=== PATIENT | male | born 1980 | race Caucasian/White ===

== ENCOUNTER 2019-01-10 20:21 | Observation (INO) ==
[2019-01-10 21:05] LABS: Basophils % 0.4 % (0.1-2.0); Eosinophils # 0.1 K/mm3 (0.0-0.4); Eosinophils % 1.2 % (0.1-12.0); Hematocrit 45.7 % (42.0-52.0); Hemoglobin 15.8 g/dL (14.1-18.0); Lymphocytes # 2.2 K/mm3 (0.7-4.5); Lymphocytes % 24.7 % (10-50); Mean Corpuscular HGB Conc 34.5 g/dL (31.8-35.4); Mean Corpuscular Hemoglobin 31.6 pg (27.0-31.2); Mean Corpuscular Volume 91.5 fl (80-94); Mean Platelet Volume 6.7 fl (7.4-10.4); Monocytes # 0.7 K/mm3 (0.1-1.0); Monocytes % 8.1 % (1.7-9.3); Neutrophils # 5.8 K/mm3 (1.8-7.8); Neutrophils % 65.6 % (37.0-80.0); Platelet Count 301 K/mm3 (142-424); Red Blood Count 4.99 M/mm3 (4.60-6.20); Red Cell Distribution Width 13.7 % (11.5-17.5); White Blood Count 8.8 K/mm3 (4.8-10.8)
[2019-01-10 21:18] LABS: Albumin Level 3.9 gm/dL (3.4-5.0); Anion Gap 15.4 mEq/L (5-15); Bilirubin,Total 0.3 mg/dL (0.2-1.0); C-Reactive Protein 1.7 mg/L (0.0-0.9); Calcium 8.6 mg/dL (8.5-10.1); Globulin 4.1 gm/dl (1.3-3.2); Potassium 3.4 mmoL/L (3.5-5.1)
[2019-01-10 21:54] LABS: Erythrocyte Sedimentation Rate 17 mm/hr (0-15)
--- NOTE | 2019-01-10 22:00 | Emergency Department Note ---
ED Disposition Clinical Impression: Abscess Disposition: Admitted as Observation Condition on Discharge: Good Referrals: Provider,Referral, [Primary Care Provider] - - Critical Care Critical Care Time: No Attestation: On 01/10/19, the high probability of a clinically significant, sudden or life threatening deterioration of the following system(s) required my full and direct attention, intervention and personal management. The time I documented below is in addition to time spent performing reported procedures but includes the following listed in this critical care notation. Medical Decision Making - Medical Records Medical records reviewed: Yes: I reviewed the patient's medical records. - Gurinder Inquiry Pt receiving controlled substance: No Vital Signs: 01/10/19 20:34 Temperature 98.6 F Temperature Source Oral Pulse Rate [Right] 120 H Respiratory Rate 18 Blood Pressure [Right Arm] 139/88 Blood Pressure Mean [Right Arm] 105 Blood Pressure Source [Right Arm] Automatic Cuff Blood Pressure Position [Right Arm] Standing 02 Sat by Pulse Oximetry 97 Oxygen Delivery Method Room Air - Lab Data Lab results reviewed: Yes: I reviewed the patient's lab results. Lab Results 01/10/19 20:51: WBC 8.8, RBC 4.99, Hgb 15.8, Hct 45.7, MCV 91.5, MCH 31.6 H, MCHC 34.5, RDW 13.7, Plt Count 301, MPV 6.7 L, Neut % (Auto) 65.6, Lymph % (Auto) 24.7, [place] % (Auto) 8.1, Eos % (Auto) 1.2, Baso % (Auto) 0.4, Neut # (Auto) 5.8, Lymph # (Auto) 2.2, [place] # (Auto) 0.7, Eos # (Auto) 0.1, Baso # (Auto) 0.0, ESR 17 H 01/10/19 20:51: Sodium 137, Potassium 3.4 L, Chloride 100, Carbon Dioxide 25, Anion Gap 15.4 H, BUN 7, Creatinine 0.92, Estimated Creat Clear 116, Estimated GFR 93, Est GFR ( Amer) 112, Glucose 100, Calcium 8.6, Total Bilirubin 0.3, AST 22, ALT 58, Alkaline Phosphatase 81, C-Reactive Protein 1.7 H, Total Pr otein 8.0, Albumin 3.9, Globulin 4.1 H, Albumin/Globulin Ratio 1.0 L 01/10/19 20:51: Lactate 1.3 Result diagrams: 01/10/19 20:51 01/10/19 20:51 Orders (Tests/Meds): ED MEDICATIONS Generic Name Dose Route Start Last Admin Trade Name Freq PRN Reason Stop Dose Admin Sodium Chloride 1,000 mls @ 999 mls/hr 01/10/19 20:45 01/10/19 20:51 Sod Chlor 0.9% 1000ml Bag IV 01/10/19 21:45 999 mls/hr .[id number] NANCY Administration Discontinued Medications Generic Name Dose Route Start Last Admin Trade Name Freq PRN Reason Stop Dose Admin Ketorolac Tromethamine 30 mg 01/10/19 20:44 01/10/19 20:50 Toradol 30mg/Ml Vial IV 01/10/19 20:45 30 mg ONCE ONE Administration ORDERS Category Date Time Status Urinalysis and Microscopic Stat Lab 01/10/19 20:43 Ordered Blood Culture Stat Micro 01/10/19 20:51 Received - Physician Consults Physician Consulted: marquita Reason -: Admission General Adult HPI - General Chief complaint: PAIN Stated complaint: Knot in the groin area Time Seen by Provider: 01/10/19 20:55 Mode of Arrival: Ambulatory Source of Information: Patient, Medical Record Limitations: No Limitations Description of Symptoms (Recalled from ER Triage Doc. by RN): Pt states he has a raised red area on left groin radiating to left testicle - History of Present Illness HPI narrative: progressive tender swollen area lt groin over the last week - no other c/o - no diabetes Onset (ago): day(s) Location: genitals, left Severity: moderate Associated symptoms: denies other symptoms Treatments prior to arrival: none - Related Data Home Medications Medication Instructions Recorded Confirmed No Known Home Medications 01/10/19 01/10/19 Allergies Allergy/AdvReac Type Severity Reaction Status Date / Time No Known Allergies Allergy Verified 01/10/19 20:42 [facility] History - Hepatitis A Screen Drug use history?: No High risk sexual behaviors?: No History of sexually transmitted infection?: No Currently employed?: No Childcare worker?: No Do you have indoor plumbing?: Yes Do you have electricity?: Yes Attestation statement:: This patient has been screened for Hepatitis A risk factors. I have reviewed the patient's past medical history: Yes Medical History: Denies:: Diabetes Mellitus Type 1, Diabetes Mellitus Type 2, Hypertension - Social History Smoking Status: Current every day smoker Tobacco Type: cigarettes # Packs/Day (cigarettes): 2 Alcohol Intake: never Occupational Status: employed - Psychiatric History Expresses thoughts of harming self/others: None Suicide Plan Description: No Plan ROS Obtained: Yes All systems reviewed & no additional complaints - Constitutional Constitutional: Denies fever(s) - Eyes Eyes: Denies change in vision - ENT Ears, Nose, Mouth, and Throat: Denies sore throat - Cardiovascular Cardiovascular: Denies chest pain - Respiratory Respiratory: No cough - Gastrointestinal Gastrointestingal: Reports: nausea. Denies: abdominal pain - Genitourinary Male Genitourinary: Denies scrotal swelling, Denies testicular mass - Musculoskeletal Musculoskeletal: Denies joint pain - Integumentary/Breasts Skin/Breast: Reports other (lt groin abscess) - Neurologic Neurologic: Denies frequent falls, Denies headache(s), Denies seizure-like activity Physical Exam - General General appearance: alert - Head Head exam: normocephalic - Eye Eye exam: Present: PERRL, EOMI. Absent: scleral icterus - ENT ENT exam: Present: mucous membranes moist - Neck Neck exam: Present: trachea midline - Respiratory Respiratory exam: Absent: respiratory distress - Cardiovascular Cardiovascular exam: Present: regular rate. Absent: systolic murmur - Abdominal Exam Abdominal exam: Present: soft - exam: Absent: testicular tenderness, scrotal swelling - Neurological Exam Neurological exam: Present: alert, oriented X3, CN II-XII intact - Psychiatric Psychiatric exam: Present: normal affect - Skin Skin exam: Present: other (2x3 abscess lt groin )
--- NOTE | 2019-01-11 06:47 | History & Physical Report ---
HPI HPI: This is a 38-year-old gentleman who presented to the emergency department with increasing pain/swelling along the left groin. Evaluation revealed changes consistent with abscess and the surgical service was consulted for admission and further management. Please see forwarded copy of HPI from emergency department evaluation below: General Adult HPI - General Chief complaint: PAIN Stated complaint: Knot in the groin area Time Seen by Provider: 01/10/19 20:55 Mode of Arrival: Ambulatory Source of Information: Patient, Medical Record Limitations: No Limitations Description of Symptoms (Recalled from ER Triage Doc. by RN): Pt states he has a raised red area on left groin radiating to left testicle - History of Present Illness HPI narrative: progressive tender swollen area lt groin over the last week - no other c/o - no diabetes Onset (ago): day(s) Location: genitals, left Severity: moderate Associated symptoms: denies other symptoms Treatments prior to arrival: none [facility] History Medical History: Reports:: Cancer (MOUTH CANCER) Denies:: Diabetes Mellitus Type 1, Diabetes Mellitus Type 2, Hypertension *Have you ever received a pneumonia vaccine?: No *Have you received a flu vaccine this season?: No - *Social History Educational Level: Completed High School Smoking Status: Current every day smoker Tobacco Type: cigarettes, smokeless tobacco # Packs/Day (cigarettes): 1 Alcohol Intake: never *Occupational Status:: employed *Travel in the last 8 weeks: None - Psychiatric History Expresses thoughts of harming self/others: None Suicide Plan Description: No Plan Family Hx:: Asthma, Cancer, Coronary Artery Disease, Heart Attack, Hyperlipidemia, Hypertension Review of Systems - Constitutional Denies anorexia - Eyes Denies change in vision - ENT Denies change in voice - *Cardiovascular Denies chest pain - *Respiratory Denies cough - *Gastrointestinal Denies abdominal pain - *Genitourinary Denies difficulty urinating - *Musculoskeletal Denies joint pain - Integumentary/Breasts Denies bleeding lesions - *Neurologic Denies frequent falls, Denies headache(s), Denies seizure-like activity - Psychiatric Denies anxiety - Endocrine Denies cold intolerance - Hematologic/Lymphatic Denies easy bleeding - Allergic/Immunologic Denies GI upset with certain foods Meds Home Medications Medication Instructions Recorded Confirmed Type No Known Home Medications 01/10/19 01/10/19 History Allergies Allergy/AdvReac Type Severity Reaction Status Date / Time No Known Allergies Allergy Verified 01/10/19 20:42 Exam Vital signs and Labs for Last 24 Hours: Temp Pulse Resp BP Pulse Ox 98.2 F 77 16 113/69 99 01/11/19 04:00 01/11/19 04:00 01/11/19 04:00 01/11/19 04:00 01/11/19 04:00 Laboratory Results - last 24 hr 01/10/19 20:51: WBC 8.8, RBC 4.99, Hgb 15.8, Hct 45.7, MCV 91.5, MCH 31.6 H, MCHC 34.5, RDW 13.7, Plt Count 301, MPV 6.7 L, Neut % (Auto) 65.6, Lymph % (Auto) 24.7, [place] % (Auto) 8.1, Eos % (Auto) 1.2, Baso % (Auto) 0.4, Neut # (Auto) 5.8, Lymph # (Auto) 2.2, [place] # (Auto) 0.7, Eos # (Auto) 0.1, Baso # (Auto) 0.0, ESR 17 H 01/10/19 20:51: Sodium 137, Potassium 3.4 L, Chloride 100, Carbon Dioxide 25, Anion Gap 15.4 H, BUN 7, Creatinine 0.92, Estimated Creat Clear 116, Estimated GFR 93, Est GFR ( Amer) 112, Glucose 100, Calcium 8.6, Total Bilirubin 0.3, AST 22, ALT 58, Alkaline Phosphatase 81, C-Reactive Protein 1.7 H, Total Protein 8.0, Albumin 3.9, Globulin 4.1 H, Albumin/Globulin Ratio 1.0 L 01/10/19 20:51: Lactate 1.3 I & O for Last 24 hours: Intake & Output 01/08/19 01/09/19 01/10/19 01/11/19 11:59 11:59 11:59 11:59 Intake Total 1250 / 1250 Balance 1250 / 1250 Weight 163 lb 9 oz - Constitutional no acute distress - *Routine HEENT Exam Head: Present: normocephalic, atraumatic Eye: Present: EOMI ENT: Present: mucous membranes moist - *Routine Neck Exam Present: full ROM - Routine Chest/Breast/Axilla Exam Chest wall: Absent: tenderness Axillae: Absent: lymphadenopathy - *Routine Respiratory Exam Absent: respiratory distress - *Routine Cardiovascular Exam Present: RRR - *Routine Abdominal Exam Present: soft - *Routine Exam Patient deferred: groin exam (Swelling/tenderness/erythema along left groin (groin/proximal scrotum)) - *Routine Extremities Exam Present: full ROM. Absent: cyanosis, clubbing, edema - Routine Back/Spine/Pelvis Exam Back/Spine: Present: full ROM - *Routine Skin Exam Present: intact - *Routine Neurological Exam Present: alert, oriented X3 - Routine Psychiatric Exam Present: normal affect Results - Results Lab Results Last 24 Hours:: Laboratory Results - last 24 hr 01/10/19 20:51: WBC 8.8, RBC 4.99, Hgb 15.8, Hct 45.7, MCV 91.5, MCH 31.6 H, MCHC 34.5, RDW 13.7, Plt Count 301, MPV 6.7 L, Neut % (Auto) 65.6, Lymph % (Auto) 24.7, [place] % (Auto) 8.1, Eos % (Auto) 1.2, Baso % (Auto) 0.4, Neut # (Aut o) 5.8, Lymph # (Auto) 2.2, [place] # (Auto) 0.7, Eos # (Auto) 0.1, Baso # (Auto) 0.0, ESR 17 H 01/10/19 20:51: Sodium 137, Potassium 3.4 L, Chloride 100, Carbon Dioxide 25, Anion Gap 15.4 H, BUN 7, Creatinine 0.92, Estimated Creat Clear 116, Estimated GFR 93, Est GFR ( Amer) 112, Glucose 100, Calcium 8.6, Total Bilirubin 0.3, AST 22, ALT 58, Alkaline Phosphatase 81, C-Reactive Protein 1.7 H, Total Protein 8.0, Albumin 3.9, Globulin 4.1 H, Albumin/Globulin Ratio 1.0 L 01/10/19 20:51: Lactate 1.3 Assessment and Plan (1) Abscess of groin, left Current visit: Yes Status: Acute Category: Medical Code(s): L02.214 - Cutaneous abscess of groin Continue antibiotics Incision and drainage of left groin abscess later today. I have discussed the risks and benefits including, but not limited to: Bleeding Infection Damage to surrounding tissue Inherent risks of sedation The patient agrees to proceed.
[2019-01-11 07:15] LABS: Basophils % 0.3 % (0.1-2.0); Eosinophils # 0.1 K/mm3 (0.0-0.4); Eosinophils % 1.2 % (0.1-12.0); Hemoglobin 14.5 g/dL (14.1-18.0); Lymphocytes % 22.4 % (10-50); Mean Corpuscular HGB Conc 33.7 g/dL (31.8-35.4); Mean Corpuscular Hemoglobin 31.9 pg (27.0-31.2); Mean Corpuscular Volume 94.4 fl (80-94); Mean Platelet Volume 6.7 fl (7.4-10.4); Monocytes # 0.9 K/mm3 (0.1-1.0); Monocytes % 10.2 % (1.7-9.3); Neutrophils # 5.9 K/mm3 (1.8-7.8); Neutrophils % 65.9 % (37.0-80.0); Platelet Count 268 K/mm3 (142-424); Red Blood Count 4.55 M/mm3 (4.60-6.20); Red Cell Distribution Width 13.7 % (11.5-17.5)
[2019-01-11 07:29] LABS: Calcium 8.5 mg/dL (8.5-10.1)
--- NOTE | 2019-01-11 07:32 | Pharmacy Consult Notes ---
[facility] Pharmacy VTE Monitoring - Patient Demographics Admission date: 01/10/19 Report Date: 01/11/19 Time: 07:31 Allergies/Adverse Reactions: Patient Allergies No Known Allergies Allergy (Verified 01/10/19 20:42) Height: 1.73 m Weight: 74.191 kg Patient Problems: Current Active Problems (Updated 01/11/19 @ 06:48 by Karthikeyan Pruitt MD) Abscess (Acute) Abscess of groin, left (Acute) - VTE Risk Labs: VTE Related Lab Results Hgb 14.5 g/dL (14.1-18.0) 01/11/19 06:21 Hct 43.0 % (42.0-52.0) 01/11/19 06:21 Plt Count 268 K/mm3 (142-424) 01/11/19 06:21 BUN 7 mg/dL (7-18) 01/10/19 20:51 Creatinine 0.92 mg/dL (0.70-1.30) 01/10/19 20:51 Estimated Creat Clear 116 mL/min (50-200) 01/10/19 20:51 Was VTE Risk Assessment Performed: Yes VTE Score: 3 VTE Risk Level: Low Risk Clinical Trial Participant: No - Prophylaxis VTE Prophylaxis Ordered?: Yes Types of VTE Prophylaxis: TEDS Knee High
--- NOTE | 2019-01-11 07:59 | Pharmacy Consult Notes ---
- Pharmacy Consult Date: 01/11/19 Time: 07:58 Referring provider: DR. STANTON Reason for Consult:: VANCOMYCIN DOSING Allergies and ADEs:: Allergies Allergy/AdvReac Type Severity Reaction Status Date / Time No Known Allergies Allergy Verified 01/10/19 20:42 Home Medications:: Home Medications Medication Instructions Recorded Confirmed Type No Known Home Medications 01/10/19 01/10/19 History Height: 1.73 m Weight: 74.191 kg Laboratory Results:: Laboratory Results - last 24 hr 01/10/19 20:51: WBC 8.8, RBC 4.99, Hgb 15.8, Hct 45.7, MCV 91.5, MCH 31.6 H, MCHC 34.5, RDW 13.7, Plt Count 301, MPV 6.7 L, Neut % (Auto) 65.6, Lymph % (Auto) 24.7, [place] % (Auto) 8.1, Eos % (Auto) 1.2, Baso % (Auto) 0.4, Neut # (Auto) 5.8, Lymph # (Auto) 2.2, [place] # (Auto) 0.7, Eos # (Auto) 0.1, Baso # (Auto) 0.0, ESR 17 H 01/10/19 20:51: Sodium 137, Potassium 3.4 L, Chloride 100, Carbon Dioxide 25, Anion Gap 15.4 H, BUN 7, Creatinine 0.92, Estimated Creat Clear 116, Estimated GFR 93, Est GFR ( Amer) 112, Glucose 100, Calcium 8.6, Total Bilirubin 0.3, AST 22, ALT 58, Alkaline Phosphatase 81, C-Reactive Protein 1.7 H, Total Protein 8.0, Albumin 3.9, Globulin 4.1 H, Albumin/Globulin Ratio 1.0 L 01/10/19 20:51: Lactate 1.3 01/11/19 06:21: WBC 9.0, RBC 4.55 L, Hgb 14.5, Hct 43.0, MCV 94.4 H, MCH 31.9 H, MCHC 33.7, RDW 13.7, Plt Count 268, MPV 6.7 L, Neut % (Auto) 65.9, Lymph % (Auto) 22.4, [place] % (Auto) 10.2 H, Eos % (Auto) 1.2, Baso % (Auto) 0.3, Neut # (Auto) 5.9, Lymph # (Auto) 2.0, [place] # (Auto) 0.9, Eos # (Auto) 0.1, Baso # (Auto) 0.0 01/11/19 06:21: Sodium 139, Potassium 4.0, Chloride 105, Carbon Dioxide 26, Anion Gap 12.0, BUN 8, Creatinine 0.95, Estimated Creat Clear 112, Estimated GFR 89, Est GFR ( Amer) 108, Glucose 93, Calcium 8.5 Medical History: Reports:: Cancer (MOUTH CANCER) Denies:: Diabetes Mellitus Type 1, Diabetes Mellitus Type 2, Hypertension Assessment and Plan (1) Abscess of groin, left Current visit: Yes Status: Acute Category: Medical Code(s): L02.214 - Cutaneous abscess of groin - Assessment and plan all Dx Assessment and Plan for all problems:: BASED ON PATIENT FACTORS, RECOMMEND VANCOMYCIN 1500 MG IV ONCE, FOLLOWED BY VANCOMYCIN 1250 MG IV Q12H. PHARMACY WILL FOLLOW DAILY AND ADJUST APPROPRIATE.
--- NOTE | 2019-01-11 12:00 | Progress Note ---
[facility] Anesthesia Checklist - Patient Identification Patient Identification: Arm Band, Verbal (Name & ) - Structural Data Admitted From: Inpatient Planned Operative Procedure/s: Left groin abscess I&D Consent for Planned Operative Procedure(s) Verified: Yes Verified Documents: Surgical Consent, History and Physical - NPO Status Verified Time NPO: 00:00 - Chart Verification Results Verified: CBC, BMP - Additional verifications Anesthesia Reactions: No - Airway Assessment C-Spine Mobility Assessed: Yes TMJ Mobility Assessed: Yes Dentition: Poor Dentition (Chipped) - Neurological Assessment Level of Consciousness: Awake Hx Seizures: No Numbness or tingling in extremities: No - Anesthesia Plan Anesthesia Risk discussed: Yes Anesthesia Plan: Verified ASA Class: II Anesthesia Type: General [facility] History 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) Denies:: Diabetes Mellitus Type 1, Diabetes Mellitus Type 2, Hypertension *Have you ever received a pneumonia vaccine?: No *Have you received a flu vaccine this season?: No Laterality Cases: Right: Total Knee Replacement (arthroscopy), Other Other Surgeries: Yes: Other (jaw) - *Social History Educational Level: Completed High School Smoking Status: Current every day smoker Tobacco Type: cigarettes, smokeless tobacco # Packs/Day (cigarettes): 2 Alcohol Intake: never *Occupational Status:: employed *Travel in the last 8 weeks: None - Psychiatric History Expresses thoughts of harming self/others: None Suicide Plan Description: No Plan Family Hx:: Asthma, Cancer, Coronary Artery Disease, Heart Attack, Hyperlipidemia, Hypertension
--- NOTE | 2019-01-11 12:50 | Operative Note ---
Date of procedure: 01/11/19 Pre-op Diagnosis:: Left groin/scrotal abscess Post-op Diagnosis:: Same Procedure performed:: Incision and drainage of left groin/scrotal abscess Surgeon:: Karthikeyan Pruitt MD ELECTRONIC BENCH TECHNICIAN:: Ulises Hunter Anesthesia: LMA Estimated blood loss (mL): 10 Operative findings:: Pocket of purulent fluid in subcutaneous tissue with some caudal and cephalad extension Operative note:: After informed consent was obtained the patient was taken to the operating room and placed in the supine position. General anesthesia with laryngeal mask airway was achieved. His left groin was prepped and draped in a sterile fashion. An elliptical incision was made overlying the central portion of the abscess cavity. This tissue was excised with electrocautery. Evaluation of the cavity revealed cephalad and caudal extension. No spreading cellulitis noted. Fluid was obtained for Gram stain/culture. The cavity was then evacuated of the remaining purulent fluid and packed with moistened gauze. The gauze was infiltrated with 1% lidocaine and dressings were applied. Condition: stable Disposition: PACU Specimens:: Fluid for Gram stain/culture Complications:: No immediate
--- NOTE | 2019-01-11 12:59 | Progress Note ---
[facility] Anesthesia Record Part II Discharge Time: 13:22 Destination: Medical Surgical Department PACU nurse assessment reviewed?: Yes Patient Condition:: Good Anesthesia Complications:: None Swallowing reflex intact?: Yes Cyanosis?: No
--- NOTE | 2019-01-11 12:59 | Progress Note ---
[facility] Anesthesia Record Part I Intake, IV Amount: 200 Estimated blood loss (mL): 5 Urine output (mL): 0 (NM) Blood Products used (#): none Blood Pressure: 108/60 SaO2: 94 Pulse Rate: 62 Respiratory Rate: 18 Temperature: 98.0 F Patient is:: Drowsy, Oral/Nasal airway, Stable Stable to PACU at:: 12:52
--- NOTE | 2019-01-12 07:00 | Progress Note ---
Subjective Patient reports: no new complaints Exam Vital signs and Labs for Last 24 Hours: Temp Pulse Resp BP Pulse Ox 98.0 F 71 18 132/74 98 01/12/19 03:47 01/12/19 03:47 01/12/19 03:47 01/12/19 03:47 01/12/19 03:47 Laboratory Results - last 24 hr 01/11/19 06:21: WBC 9.0, RBC 4.55 L, Hgb 14.5, Hct 43.0, MCV 94.4 H, MCH 31.9 H, MCHC 33.7, RDW 13.7, Plt Count 268, MPV 6.7 L, Neut % (Auto) 65.9, Lymph % (Auto) 22.4, [place] % (Auto) 10.2 H, Eos % (Auto) 1.2, Baso % (Auto) 0.3, Neut # (Auto) 5.9, Lymph # (Auto) 2.0, [place] # (Auto) 0.9, Eos # (Auto) 0.1, Baso # (Auto) 0.0 01/11/19 06:21: Sodium 139, Potassium 4.0, Chloride 105, Carbon Dioxide 26, Anion Gap 12.0, BUN 8, Creatinine 0.95, Estimated Creat Clear 112, Estimated GFR 89, Est GFR ( Amer) 108, Glucose 93, Calcium 8.5 I & O for Last 24 hours: Intake & Output 01/09/19 01/10/19 01/11/19 01/12/19 11:59 11:59 11:59 11:59 Intake Total 1250 / 1250 1892 / 1892 Output Total 50 / 50 Balance 1250 / 1250 1842 / 1842 Weight 163 lb 9 oz 169 lb 1 oz - Constitutional no acute distress - *Routine Respiratory Exam Absent: respiratory distress - *Routine Cardiovascular Exam Present: RRR - *Routine Abdominal Exam Present: soft - *Routine Skin Exam Comments: dressing intact. no erythema. Progress Note: A&P (1) Abscess of groin, left Status: Acute Assessment and plan: Overall, doing well status post incision and drainage. Current Visit: Yes
--- NOTE | 2019-01-12 07:04 | Discharge Summary ---
General - General Admission date:: 01/10/19 Discharge date: 01/12/19 HPI HPI: This is a 38-year-old gentleman who presented to the emergency department with increasing focal swelling/pain in the left groin/scrotum. He was diagnosed with an abscess in the surgical service was consulted for admission and management. Hospital Course Hospital Course: The patient was placed on vancomycin. He remained afebrile with stable normal vital signs. He underwent incision and drainage of his abscess on January 11, 2019. He convalesced well and on the morning of postoperative day 1 was deemed appropriate for discharge with outpatient dressing changes and ongoing follow- up. Objective Vital signs: Temp Pulse Resp BP Pulse Ox 98.0 F 71 18 132/74 98 01/12/19 03:47 01/12/19 03:47 01/12/19 03:47 01/12/19 03:47 01/12/19 03:47 no acute distress - *Routine HEENT Exam Head: Present: normocephalic, atraumatic - *Routine Neck Exam Present: full ROM - Routine Chest/Breast/Axilla Exam Chest wall: Absent: tenderness - *Routine Respiratory Exam Absent: respiratory distress - *Routine Cardiovascular Exam Present: RRR - *Routine Abdominal Exam Present: soft - *Routine Extremities Exam Present: full ROM. Absent: cyanosis, clubbing, edema - Routine Back/Spine/Pelvis Exam Back/Spine: Present: full ROM - *Routine Skin Exam Comments: Left groin/scrotal wound base and margin are clean - *Routine Neurological Exam Present: alert, oriented X3 - Routine Psychiatric Exam Present: normal affect Results Labs on day of discharge: Labs from last 24 hours 01/11/19 01/11/19 06:21 06:21 WBC 9.0 RBC 4.55 L Hgb 14.5 Hct 43.0 MCV 94.4 H MCH 31.9 H MCHC 33.7 RDW 13.7 Plt Count 268 MPV 6.7 L Neut % (Auto) 65.9 Lymph % (Auto) 22.4 [place] % (Auto) 10.2 H Eos % (Auto) 1.2 Baso % (Auto) 0.3 Neut # (Auto) 5.9 Lymph # (Auto) 2.0 [place] # (Auto) 0.9 Eos # (Auto) 0.1 Baso # (Auto) 0.0 Sodium 139 Potassium 4.0 Chloride 105 Carbon Dioxide 26 Anion Gap 12.0 BUN 8 Creatinine 0.95 Estimated Creat Clear 112 Estimated GFR 89 Est GFR ( Amer) 108 Glucose 93 Calcium 8.5 DS: Diagnosis - Discharge Diagnosis (1) Abscess of groin, left Status: Acute Discharge Plan - Patient Discharge Instructions ACTIVITY: Continue current activity DIET: advance to your usual diet Additional Instructions: Wet-to-dry dressing changes twice daily Patient Instructions: DI for Incision and Drainage of a Skin Abscess, Incision and Drainage of a Skin Abscess, DI for Surgical Site Infection, DI for Skin Abscess - Follow up Plan Follow up with: Karthikeyan Pruitt MD [Staff Physician] - 1 week Disposition: Home, Self-Shelter Medications: Home Medications Medication Instructions Recorded Confirmed Type No Known Home Medications 01/10/19 01/10/19 History Prescriptions/Medication Reconciliation: No Action No Known Home Medications
== END 2019-01-12 11:08 | disposition home or self-care (01) ==
LOC: 2ND 20:21 → ER 20:21 → INTOOBSV 23:25 → OBSVTOIN 23:25 → 2ND 23:28
PROVIDERS: ADMIT Surgery; ATTEND Surgery
DX: L02.214 Cutaneous abscess of groin
CPT/HCPCS: 36415; 80048; 80053; 83605; 85025; 85651; 86140; 87040; 87070; 87075; 87205; 96367; 96374; 96375; 99283; G0378; J2405; J3370

== ENCOUNTER 2020-01-19 15:23 | Emergency (ER) | payer MEDICAID, SELFPAY ==
[2020-01-19 15:24] VITALS: BP 135/70; PULSE 100; RESP 20; TEMP 36.6; O2SAT 98; BMI 24.9
[2020-01-19 15:34] VITALS: BP 138/70; PULSE 110; RESP 18; TEMP 36.7; O2SAT 99; BMI 25.0
--- NOTE | 2020-01-19 15:50 | HMH.EDUTC ---
[facility] [place] Clinical Impression: Fish hook injury of left upper arm Disposition: Home, Self-Care Condition on Discharge: Good Instructions: DI for Puncture Wound, Amoxicillin and Clavulanic Acid Additional Instructions: Keep wound area clean and dry and clean with antibacterial soap and water *Apply Neosporin or Triple antibotic cream to the puncture wounds as directed on package and watch for signs of infection After you remove the fish hook, it is important to monitor the site for infection. Should you have any of the following symptoms, see a medical professional as soon as possible to avoid further infection: Redness around the wound/hook site. Persistent drainage from the wound that is discolored. Fever or nausea. Take medication as prescribed Return if needed Straight to ER if any life threatening symptoms Prescriptions: Amoxicillin/Potassium Clav [Augmentin 875-125 Tablet] 1 tab PO Q12H 7 Days #14 tab Transmission Status: Received by [id number] Referrals: Provider,Referral, MD [Primary Care Provider] - As needed Time of Disposition: 16:02 Medical Decision Making - Gurinder Inquiry Pt receiving controlled substance: No Gurinder was queried for this patient: No Vital Signs: 01/19/20 15:24 01/19/20 15:34 01/19/20 16:05 Temperature 98 F 98.0 F 98.2 F Temperature Source Oral Oral Pulse Rate 98 H Pulse Rate [Radial] 100 H 110 H Respiratory Rate 20 18 20 Blood Pressure 133/87 Blood Pressure [Right Arm] 135/70 138/70 Blood Pressure Mean [Right Arm] 91 92 Blood Pressure Source [Right Arm] Automatic Cuff Blood Pressure Position [Right Arm] Sitting 02 Sat by Pulse Oximetry 98 99 Oxygen Delivery Method Room Air [facility] [place] HPI - General Stated complaint: ao [id number]@1430 FISH HOOK IN L aRM Time Seen by Provider: 01/19/20 15:50 Mode of Arrival: Ambulatory Source of Information: Patient Limitations: No Limitations Description of Symptoms (Recalled from Triage Doc. by RN): caught patient with a fish hook in left ac. - History of Present Illness Provider Complaint: Patient was fishing with his when she went to cast her pole and caught him in the right ac area with fishing lure and jerked and set hook in his arm States that he was unable to get it out so he came in to see if we could get it out of his arm, No active bleeding noted at this time - Related Data Previous Rx's Medication Instructions Recorded Hydrocodone/Acetaminophen [Shelby 1 each PO Q4HP PRN #13 tab 01/12/19 5-325 Tablet] Sulfamethoxazole/Trimethoprim 1 each PO BID #14 tab 01/12/19 [Bactrim DS tablet] Amoxicillin/Potassium Clav 1 tab PO Q12H 7 Days #14 tab 01/19/20 [Augmentin 875-125 Tablet] Allergies Allergy/AdvReac Type Severity Reaction Status Date / Time morphine Allergy Verified 01/19/20 16:03 [facility] History - Hepatitis A Screen Attestation statement:: This patient has been screened for Hepatitis A risk factors. 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) Denies:: Diabetes Mellitus Type 1, Diabetes Mellitus Type 2, Hypertension, Seizures Laterality Cases: Right: Other Other Surgeries: Yes: Other (jaw) - Social History Smoking Status: Current every day smoker Tobacco Type: cigarettes, smokeless tobacco # Packs/Day (cigarettes): 2 Alcohol Intake: never Occupational Status: employed Family Hx:: Asthma, Cancer, Coronary Artery Disease, Heart Attack, Hyperlipidemia, Hypertension ROS Obtained: Yes All systems reviewed & no additional complaints, Yes Systems reviewed as appropriate & no additional complaints Physical Exam - General General appearance: alert, in no apparent distress - Respiratory Respiratory exam: Present: normal lung sounds bilaterally. Absent: respiratory distress - Cardiovascular Cardiovascular exam: Present: regular rate, normal rhythm. Absent: JVD - Abdominal Exam Abdominal exam: Presen
[2020-01-19 16:05] VITALS: BP 133/87; PULSE 98; RESP 20; TEMP 36.8; O2SAT 98
== END 2020-01-19 16:17 | disposition home or self-care (01) ==
PROVIDERS: Emergency Provider Nurse Practitioner
DX: S50.352A Superficial foreign body of left elbow, initial encounter (principal); F17.210 Nicotine dependence, cigarettes, uncomplicated
CPT/HCPCS: 10120; 99202

== ENCOUNTER 2020-05-20 09:19 | Emergency (ER) | payer MEDICAID, SELFPAY ==
[2020-05-20 09:31] VITALS: BP 151/93; PULSE 80; RESP 18; TEMP 36.6; O2SAT 99; BMI 23.6
--- NOTE | 2020-05-20 09:35 | HMH.EDGENADL ---
ED Disposition Clinical Impression: Abdominal pain Qualifiers: Abdominal location: epigastric Qualified Code(s): R10.13 - Epigastric pain Hematemesis Qualifiers: Nausea presence: with nausea Qualified Code(s): K92.0 - Hematemesis Disposition: Home, Self-Care Condition on Discharge: Fair Additional Instructions: Protonix as prescribed. Zofran as needed for nausea. Do not drink alcohol. Follow-up with Dr. Denis, gastroenterology, call for appointment. Additional instructions for ABDOMINAL PAIN: See your physician as soon as possible for further evaluation. Return immediately if worsening abdominal pain, vomiting, shortness of breath, fever, vomiting of blood again, or abdominal distention. Prescriptions: Pantoprazole Sodium [Protonix 40mg tablet] 40 mg PO DAILY #14 tab Transmission Status: [facility] Ondansetron [Zofran 4mg ODT] 4 mg PO TIDP PRN #10 tab.rapdis PRN Reason: Nausea And Vomiting Transmission Status: [facility] Referrals: PCP,No [Primary Care Provider] - Joe Denis MD [Staff Physician] - Forms: Work/School Release - Critical Care Critical Care Time: No Attestation: On 05/20/20, the high probability of a clinically significant, sudden or life threatening deterioration of the following system(s) required my full and direct attention, intervention and personal management. The time I documented below is in addition to time spent performing reported procedures but includes the following listed in this critical care notation. Medical Decision Making - Medical Records Medical records reviewed: Yes: I reviewed the patient's medical records. - Gurinder Inquiry Pt receiving controlled substance: No Vital Signs: 05/20/20 09:31 05/20/20 10:13 05/20/20 12:02 Temperature 97.9 F 97.9 F Temperature Source Oral Oral Pulse Rate 74 Pulse Rate [Left Radial] 80 78 Respiratory Rate 18 18 15 Blood Pressure 130/68 Blood Pressure [Left Arm] 151/93 H 139/68 Blood Pressure Mean [Left Arm] 112 91 Blood Pressure Source [Left Arm] Automatic Cuff Automatic Cuff Blood Pressure Position [Left Arm] Sitting Sitting 02 Sat by Pulse Oximetry 99 100 Oxygen Delivery Method Room Air Room Air Room Air - Lab Data Lab results reviewed: Yes: I reviewed the patient's lab results. Lab Results 05/20/20 09:39: Urine Color Yellow, Urine Appearance Clear, Urine pH 8.5, Ur Specific [place] 1.020, Urine Protein Negative, Urine Glucose (UA) Negative, Urine Ketones Negative, Urine Blood Negative, Urine Nitrate Negative, Urine Bilirubin Negative, Urine Urobilinogen 0.2, Ur Leukocyte Esterase Negative, Urine RBC 3-5, Urine WBC Occasional, Ur Squamous Epith Cells 3-5, Urine Bacteria Trace 05/20/20 09:40: WBC 6.1, RBC 4.65, Hgb 15.4, Hct 44.7, MCV 96.3 H, MCH 33.2 H, MCHC 34.5, RDW 13.6, Plt Count 217, MPV 6.9 L, Neut % (Auto) 72.8, Lymph % (Auto) 17.1, [place] % (Auto) 7.6, Eos % (Auto) 1.8, Baso % (Auto) 0.7, Neut # (Auto) 4.4, Lymph # (Auto) 1.0, [place] # (Auto) 0.5, Eos # (Auto) 0.1, Baso # (Auto) 0.0 05/20/20 09:40: Sodium 138, Potassium 4.1, Chloride 99, Carbon Dioxide 31 H, Anion Gap 12.1, BUN 8 L, Creatinine 0.70, Estimated Creat Clear 141, Estimated GFR 126, Est GFR ( Amer) 152, Glucose 119 H, Calcium 10.0, Total Bilirubin 0.8, AST 204 H, ALT 187 H, Alkaline Phosphatase 79, Total Protein 7.6, Albumin 4.7, Globulin 2.9, Albumin/Globulin Ratio 1.6 05/20/20 09:40: PT 9.8, INR 0.98 05/20/20 09:40: Amylase 56, Lipase 146 Result diagrams: 05/20/20 09:40 05/20/20 09:40 Orders (Tests/Meds): ED MEDICATIONS Discontinued Medications Generic Name Dose Route Start Last Admin Trade Name Freq PRN Reason Stop Dose Admin Ioversol 75 ml 05/20/20 11:00 05/20/20 11:01 Rad-Optiray 350 100ml Vial IV 05/20/20 11:01 75 ml ONCE ONE Administration Protocol Ondansetron HCl 4 mg 05/20/20 09:47 05/20/20 10:04 Zofran 4mg/2ml Vial
[2020-05-20 09:46] LABS: Microscopic, Urine URINE MICROSCOPIC (MICROSCOPIC)
--- NOTE | 2020-05-20 09:46 | CT_ITS ---
PROCEDURE: CT ABDOMEN PELVIS W CON CLINICAL INDICATION: abdo pain, vomiting blood COMPARISON: CT ABDPELW CT ABD PELVIS W/ CONTRAST from 12/06/2014 TECHNIQUE: IV Contrast: 75ML OPTIRAY 350 Oral Contrast None Axial images obtained with sagittal and coronal reformats. All CT scans at the facility use one or more dose reduction, viz: automated exposure control, ma/kV adjustment per patient size (including targeted exams where dose is matched to indication, i.e. head), or iterative reconstruction technique. FINDINGS: LOWER THORAX: There is some nonspecific subtle patchy ground-glass attenuation in the lung bases. ABDOMEN & PELVIS: There is diffuse fatty liver infiltration. The spleen, adrenal glands, pancreas, and kidneys have an unremarkable appearance. There is minimal ectasia of the left ureter however, definite ureteral stone is not identified. Unremarkable appendix. No intestinal obstruction or free air. No pelvic mass or abnormal fluid collection. No acute bony findings. IMPRESSION: 1. There is minimal ectasia of the left ureter without obvious obstructing stone. Recently passed ureteral stone could cause this finding. 2. Fatty liver. 3. Subtle patchy ground-glass density areas in the lung bases nonspecific and could be due to areas of atelectasis or patchy infiltrate Dictated by: Ishan Denise MD 05/20/2020 11:22 Ishan Denise MD in [place] 05/20/2020 11:22
[2020-05-20 09:48] LABS: Appearance,Urine CLEAR (Clear); Blood, Urine Negative (Negative); Color,Urine YELLOW (Yellow); Glucose,Urine (UA) Negative (Negative); Ketones,Urine Negative (Negative); Leukocyte Esterase,Urine Negative (Negative); Nitrate,Urine Negative (Negative); PH,Urine 8.5 (5.0-8.5); Protein,Urine Negative (Negative); Urobilinogen,Urine 0.2 EU/dl (0.2)
[2020-05-20 09:50] LABS: Basophils % 0.7 % (0.1-2.0); Eosinophils # 0.1 K/mm3 (0.0-0.4); Eosinophils % 1.8 % (0.1-12.0); Hematocrit 44.7 % (42.0-52.0); Hemoglobin 15.4 g/dL (14.1-18.0); Lymphocytes % 17.1 % (10-50); Mean Corpuscular HGB Conc 34.5 g/dL (31.8-35.4); Mean Corpuscular Hemoglobin 33.2 pg (27.0-31.2); Mean Corpuscular Volume 96.3 fl (80-94); Mean Platelet Volume 6.9 fl (7.4-10.4); Monocytes # 0.5 K/mm3 (0.1-1.0); Monocytes % 7.6 % (1.7-9.3); Neutrophils # 4.4 K/mm3 (1.8-7.8); Neutrophils % 72.8 % (37.0-80.0); Platelet Count 217 K/mm3 (142-424); Red Blood Count 4.65 M/mm3 (4.60-6.20); Red Cell Distribution Width 13.6 % (11.5-17.5); White Blood Count 6.1 K/mm3 (4.8-10.8)
[2020-05-20 09:54] LABS: Chloride 99 mmol/L (98-107); Potassium 4.1 mmoL/L (3.5-5.1); Sodium 138 mmol/L (136-145)
[2020-05-20 09:56] LABS: Blood Urea Nitrogen 8 mg/dl (9-20); Creatinine Clearance Estimated 141 mL/min (50-200); Estimated Glomerular Filt Rate 126 ml/min (>60); GFR (African American) 152 ML/MIN (>60)
[2020-05-20 09:57] LABS: Alanine Aminotransferase 187 U/L (12-78); Albumin Level 4.7 g/dl (3.5-5.0); Albumin/Globulin Ratio 1.6 (1.1-1.8); Alkaline Phosphatase 79 U/L (38-126); Anion Gap 12.1 mEq/L (5-15); Aspartate Amino Transferase 204 U/L (17-59); Bilirubin,Total 0.8 mg/dl (0.2-1.3); Carbon Dioxide 31 mmol/L (22.0-30.0); Globulin 2.9 g/dL (1.3-3.2); Glucose 119 mg/dl (74-100); Total Protein,Serum 7.6 g/dl (6.3-8.2)
--- NOTE | 2020-05-20 09:57 | PC.NURSE ---
notified rad of ct, spoke with clifford
[2020-05-20 10:01] LABS: Bilirubin,Urine Negative (Negative); WBC,Urine Occasional #/hpf (0-3)
[2020-05-20 10:02] LABS: Bacteria,Urine Trace /lpf
[2020-05-20 10:13] VITALS: BP 139/68; PULSE 78; RESP 18; O2SAT 100
[2020-05-20 10:14] LABS: Amylase 56 U/L (30-110); Lipase 146 U/L (23-300)
--- NOTE | 2020-05-20 10:15 | PC.NURSE ---
lab called stating the machine to run pt/inr labs is down and they are having to send them out, notified IVETH SPARROW
--- NOTE | 2020-05-20 10:26 | PC.NURSE ---
radiology staff states they have a pt currently on the CT table and when they are finished with that pts study they will be down to get pt for CT
--- NOTE | 2020-05-20 10:55 | PC.NURSE ---
pt to CT
[2020-05-20 12:02] VITALS: BP 130/68; PULSE 74; RESP 15; TEMP 36.6; O2SAT 99
[2020-05-20 12:57] LABS: INR 0.98 (0.9-1.1); Prothrombin Time 9.8 seconds (9.4-11.8)
== END 2020-05-20 12:02 | disposition home or self-care (01) ==
PROVIDERS: Emergency Provider Emergency Medicine
DX: K92.0 Hematemesis (principal); F10.10 Alcohol abuse, uncomplicated; F17.210 Nicotine dependence, cigarettes, uncomplicated
CPT/HCPCS: 74177; 80053; 81001; 82150; 83690; 85025; 85610; 96365; 96375; 99283; J2405; Q9967

== ENCOUNTER → 2020-05-22 16:44 | Outpatient (CLI) | payer MEDICAID, SELFPAY ==
[2020-05-22 17:15] LABS: Basophils # 0.1 K/mm3 (0-0.2); Basophils % 0.7 % (0.1-2.0); Eosinophils # 0.2 K/mm3 (0.0-0.4); Eosinophils % 2.7 % (0.1-12.0); Hematocrit 46.4 % (42.0-52.0); Hemoglobin 15.7 g/dL (14.1-18.0); Lymphocytes # 2.1 K/mm3 (0.7-4.5); Lymphocytes % 32.3 % (10-50); Mean Corpuscular HGB Conc 33.7 g/dL (31.8-35.4); Mean Corpuscular Hemoglobin 33.4 pg (27.0-31.2); Monocytes # 0.6 K/mm3 (0.1-1.0); Monocytes % 8.7 % (1.7-9.3); Neutrophils # 3.5 K/mm3 (1.8-7.8); Neutrophils % 55.5 % (37.0-80.0); Platelet Count 225 K/mm3 (142-424); Red Blood Count 4.69 M/mm3 (4.60-6.20); Red Cell Distribution Width 13.5 % (11.5-17.5); White Blood Count 6.3 K/mm3 (4.8-10.8)
[2020-05-22 17:45] LABS: Alanine Aminotransferase 199 U/L (12-78); Albumin Level 4.8 g/dl (3.5-5.0); Albumin/Globulin Ratio 1.6 (1.1-1.8); Alkaline Phosphatase 80 U/L (38-126); Anion Gap 13.2 mEq/L (5-15); Aspartate Amino Transferase 161 U/L (17-59); Bilirubin,Total 0.3 mg/dl (0.2-1.3); Blood Urea Nitrogen 7 mg/dl (9-20); Carbon Dioxide 27 mmol/L (22.0-30.0); Chloride 104 mmol/L (98-107); Estimated Glomerular Filt Rate 126 ml/min (>60); GFR (African American) 152 ML/MIN (>60); Glucose 97 mg/dl (74-100); Lipase 211 U/L (23-300); Potassium 4.2 mmoL/L (3.5-5.1); Sodium 140 mmol/L (136-145); Total Protein,Serum 7.8 g/dl (6.3-8.2)
[2020-05-22 18:00] LABS: Amylase 83 U/L (30-110)
[2020-05-22 18:21] LABS: Hemoglobin A1C 5.5 % (4.0-6.0)
[2020-05-24 13:02] LABS: Hep A Ab, IgM Negative (Negative); Hepatitis B Core Antibody IgM Negative (Negative); Hepatitis B Surface Antigen Negative (Negative)
[2020-05-24 18:19] LABS: Hepatitis C Antibody <0.1 s/co ratio (0.0-0.9)
== END ==
PROVIDERS: Visit Provider Nurse Practitioner Family
DX: R10.84 Generalized abdominal pain (principal); R73.9 Hyperglycemia, unspecified; R74.8 Abnormal levels of other serum enzymes; R11.0 Nausea; F10.10 Alcohol abuse, uncomplicated
CPT/HCPCS: 36415; 80053; 80074; 82150; 83036; 83690; 85025

== ENCOUNTER → 2020-05-28 08:34 | Outpatient (CLI) | payer MEDICAID, SELFPAY ==
--- NOTE | 2020-05-28 08:46 | US_ITS ---
PROCEDURE: US LIVER CLINICAL INDICATION: ELEVATED LIVER ENZYMES COMPARISON: CT CT ABDOMEN PELVIS W CON from 05/20/2020 FINDINGS: PANCREAS: Unremarkable. No obvious mass or abnormal fluid collection. No ductal dilatation LIVER: Diffuse increased echogenicity of the liver with poor through transmission of sound consistent with hepatic steatosis. No focal liver lesion demonstrated. There is appropriate direction of blood flow within non dilated portal vein. There is a nonspecific small area of decreased echogenicity in the left hepatic lobe anteriorly measuring 9 mm and could be due to some fatty sparing or small space-occupying lesion. RIGHT KIDNEY: Unremarkable. Normal size and echogenicity. No hydronephrosis GALLBLADDER: No gallstones, gallbladder wall thickening, pericholecystic fluid, or biliary dilatation. IMPRESSION: 1. Fatty liver 2. Unremarkable appearing gallbladder. 3. Small area of decreased echogenicity in the left hepatic lobe anteriorly nonspecific possibly due to some fatty sparing or a small developing nodule. Three month follow-up may confirm stability Dictated by: Ishan Denise MD 05/28/2020 17:03 Ishan Densie MD in [place] 05/28/2020 17:03
== END ==
PROVIDERS: PCP Nurse Practitioner Family; Visit Provider Nurse Practitioner Family
DX: R74.8 Abnormal levels of other serum enzymes (principal)
CPT/HCPCS: 76705

== ENCOUNTER → 2020-06-17 14:29 | Outpatient (CLI) | payer MEDICAID, SELFPAY ==
[2020-06-17 16:35] LABS: Coronavirus 19 IgG Antibody Negative (Negative); Coronavirus 19 IgM Antibody Negative (Negative)
== END ==
PROVIDERS: Visit Provider Surgery
DX: Z01.818 Encounter for other preprocedural examination (principal); Z13.810 Encounter for screening for upper gastrointestinal disorder
CPT/HCPCS: 36415; 86328

== ENCOUNTER 2020-06-19 08:23 | Day surgery (SDC) | payer MEDICAID, SELFPAY ==
[2020-06-17 13:39] VITALS: BMI 23.6
[2020-06-19 08:46] VITALS: BP 124/78; PULSE 79; RESP 18; TEMP 36.6; O2SAT 96
--- NOTE | 2020-06-19 09:53 | HMH.ANESCL ---
[facility] Anesthesia Checklist - Patient Identification Patient Identification: Arm Band, Verbal (Name & ) - Structural Data Admitted From: Home Planned Operative Procedure/s: egd Consent for Planned Operative Procedure(s) Verified: Yes Verified Documents: History and Physical - NPO Status Verified Time NPO: 00:00 - Chart Verification Results Verified: CBC, BMP - Additional verifications Patient : No Anesthesia Reactions: No Hx Blood Transfusions: No Blood Transfusion Reaction: No Cephalosporin Allergy: No Previous Colonoscopy: No - Cardiovascular Assessment Heart Sounds: S1 & S2 Pulse Strength: Baseline Pulse Rhythm: Regular Peripheral Edema: No - Airway Assessment C-Spine Mobility Assessed: Yes TMJ Mobility Assessed: Yes Dentition: Poor Dentition - Neurological Assessment Level of Consciousness: Awake, Alert, Appropriate Hx Seizures: No Numbness or tingling in extremities: No - Anesthesia Plan Anesthesia Risk discussed: Yes Anesthesia Plan: Verified ASA Class: II Anesthesia Type: MAC [facility] History 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 No: Pacemaker Amputation: No Fractures: No - *Social History Last grade of school completed: High school graduate Smoking Status: Current every day smoker Tobacco Type: cigarettes, smokeless tobacco # Packs/Day (cigarettes): 2 Alcohol Intake: current Alcohol Intake Frequency:: 0-2 drinks per day Substance Use Type: other *Occupational Status:: employed Housing: house Household Members: spouse *Travel in the last 8 weeks: None Family Hx:: Asthma, Cancer, Coronary Artery Disease, Heart Attack, Hyperlipidemia, Hypertension
[2020-06-19 09:56] VITALS: O2SAT 96
--- NOTE | 2020-06-19 10:14 | HMH.SCOPE ---
- Procedure: Date: 06/19/20 Patient Date of :: 1980 Procedure Performed:: Esophagogastroduodenoscopy with biopsy Indications:: Hematemesis Performing Provider:: Karthikeyan Pruitt MD Referring Provider:: . Sedation:: Monitored anesthesia care Procedure:: After informed consent was obtained the patient was taken to the endoscopy suite. Sedation ensued after the patient was transferred to the left lateral decubitus position. Pulse, blood pressure, and oxygen saturation were monitored throughout the procedure. The endoscope was advanced beyond the duodenal bulb. Retroflexion within the gastric lumen was accomplished. The gastroscope was carefully removed and the patient was transferred to recovery in stable condition. Please see findings and specimens below for detail. Findings:: Gastroesophageal junction at 36 cm Moderately large sliding hiatal hernia Moderate to severe gastritis Inlet patch at 18 cm No ulcerations or sign of active/recent hemorrhage Specimens:: Antral biopsy Biopsy of gastroesophageal junction Recommendations:: Proton pump inhibition Follow-up pathology Complications:: No immediate Estimated blood obtained (mL): 1
[2020-06-19 10:17] VITALS: BP 100/53; PULSE 82; RESP 18; TEMP 36.3; O2SAT 97
[2020-06-19 10:27] VITALS: BP 105/55; PULSE 84; RESP 18; O2SAT 98
[2020-06-19 10:37] VITALS: BP 118/72; PULSE 84; RESP 18; O2SAT 97
[2020-06-19 10:47] VITALS: BP 116/74; PULSE 78; RESP 18; O2SAT 98
== END 2020-06-19 10:50 | disposition home or self-care (01) ==
LOC: OUTP 08:25
PROVIDERS: PCP Nurse Practitioner Family; Visit Provider Surgery
PROC: 0DJ08ZZ Inspection of Upper Intestinal Tract, Via Natural or Artificial Opening Endoscopic (ICD-10-PCS; CPT 43235; principal; 2020-06-19 09:30)
DX: K92.0 Hematemesis (principal); K44.9 Diaphragmatic hernia without obstruction or gangrene; K29.60 Other gastritis without bleeding; F10.929 Alcohol use, unspecified with intoxication, unspecified; Z85.89 Personal history of malignant neoplasm of other organs and systems; Z72.0 Tobacco use; Z82.5 Family history of asthma and other chronic lower respiratory diseases; Z82.49 Family history of ischemic heart disease and other diseases of the circulatory system; Z83.438 Family history of other disorder of lipoprotein metabolism and other lipidemia; Z82.3 Family history of stroke; Z79.899 Other long term (current) drug therapy
CPT/HCPCS: 43239

== ENCOUNTER 2020-06-19 20:30 | Emergency (ER) | payer MEDICAID, SELFPAY ==
[2020-06-19 20:50] VITALS: BP 138/81; PULSE 99; RESP 18; TEMP 36.7; O2SAT 97; BMI 23.6
--- NOTE | 2020-06-19 21:10 | PC.NURSE ---
Pt took off running out of the ED with his IV in placed, when I asked for him to stop so I could remove his IV, pt took of sprinting across the Helicopter pad and refused to stop, Primary Special Education Teacher notified and I was instructed by her to contact PD
--- NOTE | 2020-06-19 21:10 | PC.NURSE ---
calling dispatch at this time to notify PD of pt running out of ED with IV intact
[2020-06-19 21:16] LABS: Basophils # 0.1 K/mm3 (0-0.2); Basophils % 0.8 % (0.1-2.0); Eosinophils # 0.3 K/mm3 (0.0-0.4); Eosinophils % 3.1 % (0.1-12.0); Hematocrit 46.5 % (42.0-52.0); Hemoglobin 15.5 g/dL (14.1-18.0); Lymphocytes # 3.5 K/mm3 (0.7-4.5); Lymphocytes % 39.4 % (10-50); Mean Corpuscular HGB Conc 33.2 g/dL (31.8-35.4); Mean Corpuscular Hemoglobin 31.6 pg (27.0-31.2); Mean Corpuscular Volume 94.9 fl (80-94); Mean Platelet Volume 6.9 fl (7.4-10.4); Monocytes # 0.6 K/mm3 (0.1-1.0); Monocytes % 6.3 % (1.7-9.3); Neutrophils # 4.5 K/mm3 (1.8-7.8); Neutrophils % 50.4 % (37.0-80.0); Platelet Count 332 K/mm3 (142-424); Red Cell Distribution Width 13.3 % (11.5-17.5)
--- NOTE | 2020-06-19 21:16 | HMH.EDNVD ---
ED Disposition Clinical Impression: Abdominal pain Qualifiers: Abdominal location: generalized Qualified Code(s): R10.84 - Generalized abdominal pain Alcohol intoxication Qualifiers: Complication of substance-induced condition: with unspecified complication Qualified Code(s): F10.929 - Alcohol use, unspecified with intoxication, unspecified Disposition: Left Against Medical Advice Condition on Discharge: Good Instructions: DI for Acute Abdomen Referrals: Kandi Akhtar APRN [Primary Care Provider] - - Critical Care Critical Care Time: No Attestation: On 06/19/20, the high probability of a clinically significant, sudden or life threatening deterioration of the following system(s) required my full and direct attention, intervention and personal management. The time I documented below is in addition to time spent performing reported procedures but includes the following listed in this critical care notation. Medical Decision Making - Medical Records Medical records reviewed: Yes: I reviewed the patient's medical records. - Gurinder Inquiry Pt receiving controlled substance: No Vital Signs: 06/19/20 20:50 Temperature 98.1 F Temperature Source Oral Pulse Rate [Right] 99 H Respiratory Rate 18 Blood Pressure [Right Arm] 138/81 Blood Pressure Mean [Right Arm] 100 Blood Pressure Source [Right Arm] Automatic Cuff Blood Pressure Position [Right Arm] Sitting 02 Sat by Pulse Oximetry 97 Oxygen Delivery Method Room Air - Lab Data Lab results reviewed: Yes: I reviewed the patient's lab results. Lab Results 06/19/20 21:02: WBC 9.0, RBC 4.90, Hgb 15.5, Hct 46.5, MCV 94.9 H, MCH 31.6 H, MCHC 33.2, RDW 13.3, Plt Count 332, MPV 6.9 L, Neut % (Auto) 50.4, Lymph % (Auto) 39.4, [place] % (Auto) 6.3, Eos % (Auto) 3.1, Baso % (Auto) 0.8, Neut # (Auto) 4.5, Lymph # (Auto) 3.5, [place] # (Auto) 0.6, Eos # (Auto) 0.3, Baso # (Auto) 0.1 06/19/20 21:02: Sodium 143, Potassium 3.8, Chloride 104, Carbon Dioxide 25, Anion Gap 17.8 H, BUN 8 L, Creatinine 0.80, Estimated Creat Clear 123, Estimated GFR 108, Est GFR ( Amer) 130, Glucose 114 H, Calcium 9.2, Total Bilirubin 0.3, AST 46, ALT 50, Alkaline Phosphatase 63, C-Reactive Protein 3.0, Total Protein 7.4, Albumin 4.4, Globulin 3.0, Albumin/Globulin Ratio 1.5, Amylase 81, Lipase 211 06/19/20 21:02: Plasma/Serum Alcohol 266 H 06/19/20 21:02: Lactate 1.3 Result diagrams: 06/19/20 21:02 06/19/20 21:02 Orders (Tests/Meds): ED MEDICATIONS Generic Name Dose Route Start Last Admin Trade Name Freq PRN Reason Stop Dose Admin Sodium Chloride 1,000 mls @ 999 mls/hr 06/19/20 21:15 06/19/20 21:05 Sod Chlor 0.9% 1000ml Bag IV 06/19/20 22:15 999 mls/hr .Q1H1M NANCY Administration Sodium Chloride 8 ml 06/19/20 21:02 Sodium Chloride 0.9% 10ml Vial IV 07/19/20 21:01 NEEDED PRN dilute pepcid Discontinued Medications Generic Name Dose Route Start Last Admin Trade Name Freq PRN Reason Stop Dose Admin Famotidine 20 mg 06/19/20 21:02 06/19/20 21:04 Famotidine 20mg/2ml Vial IV 06/19/20 21:03 20 mg ONCE ONE Administration Metoclopramide HCl 10 mg 06/19/20 21:02 06/19/20 21:04 Metoclopramide Hcl 10mg/2ml Vial IVP 06/19/20 21:03 10 mg ONCE ONE Administration Ondansetron HCl 4 mg 06/19/20 21:02 06/19/20 21:04 Ondansetron 4mg/2ml Vial IV 06/19/20 21:03 4 mg ONCE ONE Administration ORDERS Category Date Time Status Complete Blood Count Auto Diff Stat Lab 06/19/20 21:02 Results Erythrocyte Sedimentation Rate Stat Lab 06/19/20 21:02 Results Blood Culture Stat Micro 06/19/20 21:02 Received Nausea/Vomiting/Diarrhea HPI - General Chief complaint: Abdominal Pain Stated complaint: abd pain Time Seen by Provider: 06/19/20 21:00 Mode of Arrival: Ambulatory Source of Information: Patient, Spouse, Medical Record Limitations: No Limitations Description of Symptoms (Recalled from ER Triage Doc. by RN): Pt had an EGD done today
[2020-06-19 21:20] LABS: Chloride 104 mmol/L (98-107); Potassium 3.8 mmoL/L (3.5-5.1); Sodium 143 mmol/L (136-145)
[2020-06-19 21:23] LABS: Alanine Aminotransferase 50 U/L (12-78); Albumin Level 4.4 g/dl (3.5-5.0); Albumin/Globulin Ratio 1.5 (1.1-1.8); Alkaline Phosphatase 63 U/L (38-126); Amylase 81 U/L (30-110); Anion Gap 17.8 mEq/L (5-15); Aspartate Amino Transferase 46 U/L (17-59); Bilirubin,Total 0.3 mg/dl (0.2-1.3); Blood Urea Nitrogen 8 mg/dl (9-20); Calcium 9.2 mg/dl (8.4-10.2); Carbon Dioxide 25 mmol/L (22.0-30.0); Creatinine Clearance Estimated 123 mL/min (50-200); Estimated Glomerular Filt Rate 108 ml/min (>60); GFR (African American) 130 ML/MIN (>60); Glucose 114 mg/dl (74-100); Lipase 211 U/L (23-300); Total Protein,Serum 7.4 g/dl (6.3-8.2)
[2020-06-19 21:24] LABS: Ethyl Alcohol 266 mg/dl (0-10); Lactic Acid 1.3 mmol/L (0.7-2.1)
[2020-06-19 21:39] VITALS: BP 000/00; PULSE 0; RESP 0; TEMP -17.7; TEMP 0; O2SAT 0
[2020-06-19 21:54] LABS: Erythrocyte Sedimentation Rate 8 mm/hr (0-15)
== END 2020-06-19 21:15 | disposition left against medical advice (07) ==
PROVIDERS: Emergency Provider Emergency Medicine; PCP Nurse Practitioner Family
DX: R10.84 Generalized abdominal pain (principal); F10.929 Alcohol use, unspecified with intoxication, unspecified; Y90.8 Blood alcohol level of 240 mg/100 ml or more; F17.210 Nicotine dependence, cigarettes, uncomplicated
CPT/HCPCS: 80053; 82150; 83605; 83690; 85025; 85651; 86140; 87040; 96365; 96375; 99283; J2405

== ENCOUNTER 2020-12-05 18:39 | Emergency (ER) | payer OTHER, SELFPAY ==
[2020-12-05 18:49] VITALS: BP 136/95; PULSE 101; RESP 18; TEMP 36.7; O2SAT 98; BMI 24.0
--- NOTE | 2020-12-05 19:01 | HMH.EDEYEP ---
ED Disposition Clinical Impression: Eye foreign body Qualifiers: Encounter type: initial encounter Laterality: right Qualified Code(s): T15.91XA - Foreign body on external eye, part unspecified, right eye, initial encounter Disposition: Home, Self-Care Condition on Discharge: Good Instructions: DI for Eye Pain Prescriptions: Erythromycin Base [Erythromycin 3.5gm opth oinment] 1 applic OP TID 7 Days #3.5 oint...g. Transmission Status: Pending to [id number] Referrals: Kandi Akhtar APRN [Primary Care Provider] - [facility] [Other] Dr. Qureshi [Other] - Critical Care Critical Care Time: No Attestation: On 12/05/20, the high probability of a clinically significant, sudden or life threatening deterioration of the following system(s) required my full and direct attention, intervention and personal management. The time I documented below is in addition to time spent performing reported procedures but includes the following listed in this critical care notation. Medical Decision Making - Medical Records Medical records reviewed: Yes: I reviewed the patient's medical records. - Gurinder Inquiry Pt receiving controlled substance: No Vital Signs: 12/05/20 18:49 Temperature 98.0 F Temperature Source Oral Pulse Rate [Right] 101 H Respiratory Rate 18 Blood Pressure [Right Arm] 136/95 H Blood Pressure Mean [Right Arm] 108 02 Sat by Pulse Oximetry 98 Oxygen Delivery Method Room Air - Reevaluation(s) Time: 19:04 Reevaluation #1: On reevaluation, patient is feeling much better. Pain is improved. Patient is to follow-up with ophthalmology. Given strict return precautions. Verbalized understanding. Medical Decision Narrative: 40-year-old male presented to the emergency department with right eye pain. Concern for foreign body. Patient will require thorough examination with Payan lamp. Eye Problem HPI - General Chief complaint: Eye Problems Stated complaint: 0402@1400 FB PIECE cUT OFF DISC Time Seen by Provider: 12/05/20 18:55 Mode of Arrival: Family Vehicle Limitations: No Limitations Description of Symptoms (Recalled from ER Triage Doc. by RN): PATIENR C/O RIGHT EYE PAIN AFTER A PIECE OF FIBERGLASS WENT INTO HIS EYE. PT STATED IN ED TRIAGE, I WAS GRINDING A WHEEL AND A PIECE OF FIBERGLASS WENT INTO MY EYE. PT REPORTS HIS VISION IS BLURRY BUT STILL HAS VISION. - History of Present Illness HPI Narrative: 40-year-old male presented to the emergency department with right eye pain. Patient states that he was grinding some fiberglass when he felt something get into his eye. This was earlier around noon. Patient is complaining of some right eye pain. States it hurts when he opens his eye. He feels like something is in there. States he is able to see out of it, however it causes some pain. He denies any face pain. Tetanus is up-to-date. No headache or change in vision. No focal weakness. No abdominal pain or vomiting. No diarrhea. No headache or change in vision. - Related Data Previous Rx's Medication Instructions Recorded pantoprazole 40 mg tablet,delayed 40 mg PO DAILY #30 tab 06/19/20 release Erythromycin Base [Erythromycin 1 applic OP TID 7 Days #3.5 12/05/20 3.5gm opth oinment] oint...g. Allergies Allergy/AdvReac Type Severity Reaction Status Date / Time morphine Allergy Verified 06/17/20 13:39 [facility] History - Hepatitis A Screen Drug use history?: No High risk sexual behaviors?: No History of sexually transmitted infection?: No Currently employed?: No Childcare worker?: No Do you have indoor plumbing?: Yes Do you have electricity?: Yes Attestation statement:: This patient has been screened for Hepatitis A risk factors. 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
[2020-12-05 19:19] VITALS: BP 130/86; PULSE 99; RESP 16; TEMP 36.7; O2SAT 98
== END 2020-12-05 19:20 | disposition home or self-care (01) ==
PROVIDERS: Emergency Provider Emergency Medicine; PCP Nurse Practitioner Family
DX: T15.11XA Foreign body in conjunctival sac, right eye, initial encounter (principal); W45.8XXA Other foreign body or object entering through skin, initial encounter; Y92.89 Other specified places as the place of occurrence of the external cause; F17.210 Nicotine dependence, cigarettes, uncomplicated; F10.10 Alcohol abuse, uncomplicated
CPT/HCPCS: 65205; 99281

== ENCOUNTER 2022-03-15 16:55 | Emergency (ER) | payer OTHER, SELFPAY ==
[2022-03-15 17:00] VITALS: BP 139/86; PULSE 104; RESP 15; TEMP 36.7; O2SAT 98
--- NOTE | 2022-03-15 17:00 | PC.NURSE ---
170-Trauma alert called Rosalio'janeth notified calling [facility] 1701-Negative fast exam per Dr. Rivera 1705-[facility]'s at bedside 1706-Requested rad to bring another portable machine; initial one was not charged 1709-Dr. Reynolds speaking with [facility]; Pt accepted by Dr. Miller 173-Marcial departed with pt; Report called to Grace at ER
--- NOTE | 2022-03-15 17:02 | PC.NURSE ---
Talking to [facility] Trauma Team for transfer of patient.
--- NOTE | 2022-03-15 17:03 | XR_ITS ---
PROCEDURE INFORMATION: Exam: XR Chest Exam date and time: 03/15/2022 5:16 PM Age: 42 years old Clinical indication: Injury or trauma; Fall; Blunt trauma (contusions or hematomas); Additional info: Trauma fell off ladder 12 feet- spinal injury suspected can not roll to back and can not feel legs TECHNIQUE: Imaging protocol: Radiologic exam of the chest. Views: 1 view. COMPARISON: CT ABDOMEN PELVIS W CON 05/20/2020 10:52 AM FINDINGS: Study limited secondary to patient positioning. Lungs: Unremarkable. No consolidation. Pleural spaces: Unremarkable. No pleural effusion. No pneumothorax. Heart/Mediastinum: Unremarkable. No cardiomegaly. Bones/joints: Unremarkable. IMPRESSION: No acute findings.
--- NOTE | 2022-03-15 17:03 | PC.NURSE ---
Fingerstick 93
--- NOTE | 2022-03-15 17:04 | XR_ITS ---
PROCEDURE INFORMATION: Exam: XR Pelvis Exam date and time: 03/15/2022 5:16 PM Age: 42 years old Clinical indication: Injury or trauma; Fall; Blunt trauma (contusions or hematomas); Does not apply; Pelvic region; Additional info: Trauma--trauma fell off ladder 12 feet- spinal injury suspected can not roll to back and can not feel legs TECHNIQUE: Imaging protocol: Radiologic exam of the pelvis. Views: 1 or 2 view. COMPARISON: CT ABDOMEN PELVIS W CON 05/20/2020 10:52 AM FINDINGS: Bones/joints: Unremarkable. No acute fracture. Soft tissues: Unremarkable as visualized. Intraperitoneal space: Study limited secondary to patient positioning. The exam consists of a single oblique projection of the pelvis. IMPRESSION: 1. Limited study as described above. 2. No evidence of acute osseous injury within limitation of the field of view.
[2022-03-15 17:09] LABS: Basophils % 0.8 % (0.1-2.0); Eosinophils # 0.1 K/mm3 (0.0-0.4); Eosinophils % 2.3 % (0.1-12.0); Hematocrit 42.8 % (42.0-52.0); Hemoglobin 14.8 g/dL (14.1-18.0); Mean Corpuscular HGB Conc 34.5 g/dL (31.8-35.4); Mean Corpuscular Hemoglobin 32.9 pg (27.0-31.2); Mean Corpuscular Volume 95.4 fl (80-94); Mean Platelet Volume 6.9 fl (7.4-10.4); Monocytes # 0.5 K/mm3 (0.1-1.0); Monocytes % 8.1 % (1.7-9.3); Neutrophils % 52.9 % (37.0-80.0); Platelet Count 247 K/mm3 (142-424); Red Blood Count 4.48 M/mm3 (4.60-6.20); Red Cell Distribution Width 15.2 % (11.5-17.5); White Blood Count 5.7 K/mm3 (4.8-10.8)
--- NOTE | 2022-03-15 17:15 | PC.NURSE ---
Dr Melton talked to Dr Hartman and patient is being accepted and sent thru ER.
[2022-03-15 17:16] VITALS: BMI 25.0
[2022-03-15 17:19] LABS: Chloride 103 mmol/L (98-107); Potassium 3.9 mmoL/L (3.5-5.1); Sodium 139 mmol/L (136-145)
[2022-03-15 17:22] LABS: Alanine Aminotransferase 50 U/L (12-78); Albumin Level 4.9 g/dl (3.5-5.0); Albumin/Globulin Ratio 1.5 (1.1-1.8); Alkaline Phosphatase 69 U/L (38-126); Anion Gap 13.9 mEq/L (5-15); Aspartate Amino Transferase 70 U/L (17-59); Bilirubin,Total 0.9 mg/dl (0.2-1.3); Blood Urea Nitrogen 9 mg/dl (9-20); Calcium 10.1 mg/dl (8.4-10.2); Carbon Dioxide 26 mmol/L (22.0-30.0); Creatinine Clearance Estimated 129 mL/min (50-200); Estimated Glomerular Filt Rate 107 ml/min (>60); GFR (African American) 129 ML/MIN (>60); Globulin 3.2 g/dL (1.3-3.2); Glucose 93 mg/dl (74-100); Lipase 124 U/L (23-300); Total Protein,Serum 8.1 g/dl (6.3-8.2)
[2022-03-15 17:23] LABS: Ethyl Alcohol 154 mg/dl (0-10)
[2022-03-15 17:33] VITALS: BP 139/86; PULSE 104; RESP 15; TEMP 36.7; O2SAT 98
--- NOTE | 2022-03-15 17:34 | [facility].EDTRAUMA ---
ED Disposition Clinical Impression: Shock due to spinal cord injury Fall Qualifiers: Encounter type: initial encounter Qualified Code(s): W19.XXXA - Unspecified fall, initial encounter Disposition: Xfer Intermediate Care Fac Condition on Discharge: Serious Forms: Transfer Record - ED - Critical Care Critical Care Time: No Attestation: On , the high probability of a clinically significant, sudden or life threatening deterioration of the following system(s) required my full and direct attention, intervention and personal management. The time I documented below is in addition to time spent performing reported procedures but includes the following listed in this critical care notation. Medical Decision Making - Medical Records Medical records reviewed: Yes: I reviewed the patient's medical records. - Gurinder Inquiry Pt receiving controlled substance: Yes Gurinder was queried for this patient: No Reason not queried -: Emergent pt cond-no time Risks and benefits of using a controlled substance: were discussed with pt by me Vital Signs: 03/15/22 17:00 Temperature 98.1 F Temperature Source Oral Pulse Rate [Right Radial] 104 H Respiratory Rate 15 Blood Pressure [Right Arm] 139/86 Blood Pressure Mean [Right Arm] 103 02 Sat by Pulse Oximetry 98 Oxygen Delivery Method Room Air - Lab Data Lab Results 03/15/22 17:00: WBC 5.7, RBC 4.48 L, Hgb 14.8, Hct 42.8, MCV 95.4 H, MCH 32.9 H, MCHC 34.5, RDW 15.2, Plt Count 247, MPV 6.9 L, Neut % (Auto) 52.9, Lymph % (Auto) 36.0, Bowman % (Auto) 8.1, Eos % (Auto) 2.3, Baso % (Auto) 0.8, Neut # (Auto) 3.0, Lymph # (Auto) 2.0, Bowman # (Auto) 0.5, Eos # (Auto) 0.1, Baso # (Auto) 0.0 03/15/22 17:00: Sodium 139, Potassium 3.9, Chloride 103, Carbon Dioxide 26, Anion Gap 13.9, BUN 9, Creatinine 0.80, Estimated Creat Clear 129, Estimated GFR 107, Est GFR ( Amer) 129, Glucose 93, Calcium 10.1, Total Bilirubin 0.9, AST 70 H, ALT 50, Alkaline Phosphatase 69, Total Protein 8.1, Albumin 4.9, Globulin 3.2, Albumin/Globulin Ratio 1.5, Lipase 124 03/15/22 17:00: Plasma/Serum Alcohol 154 H Result diagrams: 03/15/22 17:00 03/15/22 17:00 Orders (Tests/Meds): ED MEDICATIONS Generic Name Dose Route Start Last Admin Trade Name Freq PRN Reason Stop Dose Admin Sodium Chloride 1,000 mls @ 999 mls/hr 03/15/22 17:15 Sod Chlor 0.9% 1000ml Bag IV 03/15/22 18:15 .Q1H1M NANCY Discontinued Medications Generic Name Dose Route Start Last Admin Trade Name Freq PRN Reason Stop Dose Admin Fentanyl Citrate 100 mcg 03/15/22 17:04 Fentanyl 100mcg/2ml Vial IV 03/15/22 17:05 ONCE ONE Ondansetron HCl 4 mg 03/15/22 17:04 Ondansetron 4mg/2ml Vial IV 03/15/22 17:05 ONCE ONE ORDERS Category Date Time Status XR chest portable Stat Exams 03/15/22 17:03 Taken XR pelvis 1-2V Stat Exams 03/15/22 17:04 Taken Comprehensive Metabolic Panel Stat Lab 03/15/22 17:00 Results Lipase Stat Lab 03/15/22 17:00 Results Trop I [Troponin I] Stat Lab 03/15/22 17:00 Results Troponin I Q3H Lab 03/15/22 20:15 Ordered Troponin I Q3H Lab 03/15/22 23:15 Ordered UDS [Drug Screen,Urine] Stat Lab 03/15/22 17:03 Ordered Medical Decision Narrative: 42-year-old male presented to the emergency department after a fall. Given the significant nature of the injury, trauma alert was initiated. Patient has some decreased sensation and motor function in the lower extremities bilaterally. Concern for spinal shock versus acute cord compression. Patient's fast examination was negative. Analgesics provided. Placed in cervical spine precautions. [facility] and trauma surgery was notified immediately. They have accepted the admission. The patient will be transferred emergently to for trauma surgery evaluation. Trauma Alert The Trauma Alert Section documentation for [id number] Kenji Quinn was populated with data that defaulted in from the extrusion engineer in the
[2022-03-15 17:36] LABS: Troponin I < 0.01 ng/ml (0.00-0.034)
== END 2022-03-15 17:33 ==
LOC: ER 18:03
PROVIDERS: Emergency Provider Emergency Medicine
DX: R57.8 Other shock (principal); T14.8XXA Other injury of unspecified body region, initial encounter; W11.XXXA Fall on and from ladder, initial encounter; Y99.0 Civilian activity done for income or pay
CPT/HCPCS: 71045; 72170; 80053; 83690; 84484; 85025; 96365; 96375; 99284; J2405